=== PATIENT | female | born 1970 | race Caucasian/White ===

== ENCOUNTER → 2016-10-25 | Outpatient (CLI) | payer OTHER | LOC: HEART 5 09:15 | DX: R94.31 Abnormal electrocardiogram [ECG] [EKG] (principal); R94.39 Abnormal result of other cardiovascular function study | CPT/HCPCS: 78452; A9502 ==

== ENCOUNTER → 2016-11-01 | Outpatient (CLI) | payer OTHER | LOC: HEART 5 14:00 | DX: R00.2 Palpitations (principal); R94.31 Abnormal electrocardiogram [ECG] [EKG] ==

== ENCOUNTER → 2020-11-08 | Outpatient (CLI) | payer OTHER ==
[~2020-11-08] MED LIST: ASPIRIN EC81 MG PO; ATORVASTATIN CA20 MG PO; CLOPIDOGREL75 MG PO; FISH OIL 1,2001 EAC1 PO; GLUCOPHAGE 500500 MG PO; HYDROCHLOROTHIA50 MG PO; IMDUR ER TAB 3030 MG PO; LEVOTHYROXINE50 MCG PO; MELOXICAM15 MG PO; METOPROLOL TAR100 MG PO; MONTELUKAST SOD10 MG PO; MULTIVITAMINS1 EAC1 PO; VITAMIN D 40400 UNIT PO; ZYLOPRIM 300 M300 MG PO
== END ==
LOC: HEART 5 13:30
DX: R00.1 Bradycardia, unspecified (principal); I49.1 Atrial premature depolarization; I49.3 Ventricular premature depolarization